=== PATIENT | male | born 1930 | race Two or more races ===

== ENCOUNTER 2017-09-22 16:15 | Emergency (ER) | payer MEDICARE, OTHER ==
[~2017-09-22] VITALS: Ht 177.8 cm; Wt 68.0 kg
[2017-09-22 18:52] VITALS: BP 119/66
== END 2017-09-22 21:15 | disposition home or self-care (01) ==
LOC: EDBD 16:21 → ER 16:21
DX: R05 Cough (principal); R53.1 Weakness; Z88.6 Allergy status to analgesic agent
CPT/HCPCS: 71020; 82962

== ENCOUNTER 2018-12-02 15:42 | Emergency (ER) | payer MEDICARE ==
[~2018-12-02] VITALS: Ht 170.2 cm; Wt 68.0 kg
[2018-12-02 15:58] VITALS: BP 142/61
== END 2018-12-02 21:34 | disposition left against medical advice (07) ==
LOC: ER 15:45
DX: R53.1 Weakness (principal); Z53.21 Procedure and treatment not carried out due to patient leaving prior to being seen by health care provider
CPT/HCPCS: 71045; 93005